=== PATIENT | female | born 1955 | race American Indian/Alaskan Native ===

== ENCOUNTER 2016-10-19 09:21 | Emergency (ER) | payer SELFPAY ==
[2016-10-19] MEDS ORDERED: TORADOL IM ONE (16:16)
--- NOTE | 2016-10-19 16:22 | Emergency Department Report ---
ED General Adult HPI - General Chief complaint: Pain General Stated complaint: BODY ACHES/KNEE PAIN Time Seen by Provider: 10/19/16 16:14 Source: patient Mode of arrival: Ambulatory Limitations: No Limitations - History of Present Illness Initial comments: 60-year-old female from the [facility] comes in for complaint of joint pain all over. Patient reports she has been hasn't taken her meds since August. She ran out of medication and her provider back in the [facility] when no longer refilled her meds. Patient reports she has a history of osteoarthritis and she is on methotrexate 2.5 mg every week prednisone 10 mg daily lisinopril 20 mg daily for hypertension and she was on Percocet 5/325 every 6 hours. Patient's provider was Dr. Mckenna Espinoza from the [facility]. She reports that the most pain is in her left knee she's has pain in her hands shoulders and back. He has tried [id number] Aleve and Advil with not much success. She does bring in copies of her prescription from the pharmacy. She is here on the [facility] and states she is taking care of her sick sister. - Related Data Previous Rx's Medication Instructions Recorded Last Taken Type Lisinopril [Zestril TAB] 10 mg PO QDAY #30 tablet 10/19/16 Unknown Rx Methotrexate(Dose Weekly Only) 2.5 mg PO QWEEK #4 tablet 10/19/16 Unknown Rx predniSONE [Deltasone] 10 mg PO QDAY #30 tab 10/19/16 Unknown Rx traMADol [Ultram 50 MG tab] 50 mg PO Q4HR PRN #30 tablet 10/19/16 Unknown Rx Allergies Allergy/AdvReac Type Severity Reaction Status Date / Time No Known Allergies Allergy Unverified 10/19/16 09:31 ED Review of Systems ROS: Stated complaint: BODY ACHES/KNEE PAIN Other details as noted in HPI Constitutional: denies: chills, fever Respiratory: no symptoms reported Musculoskeletal: back pain, arthralgia. denies: joint swelling Skin: denies: rash, lesions Neurological: as per HPI. denies: headache, numbness, paresthesias, abnormal gait ED Past Medical Hx - Past Medical History Previous Medical History?: Yes Hx Hypertension: Yes Hx Arthritis: (OSTESO ARTHRITIS) - Surgical History Past Surgical History?: Yes Additional Surgical History: THYROID SURGERY - Social History Smoking Status: Never Smoker - Medications Home Medications: Home Medications Medication Instructions Recorded Confirmed Last Taken Type Lisinopril [Zestril TAB] 10 mg PO QDAY #30 tablet 10/19/16 Unknown Rx Methotrexate(Dose Weekly Only) 2.5 mg PO QWEEK #4 tablet 10/19/16 Unknown Rx predniSONE [Deltasone] 10 mg PO QDAY #30 tab 10/19/16 Unknown Rx traMADol [Ultram 50 MG tab] 50 mg PO Q4HR PRN #30 tablet 10/19/16 Unknown Rx ED Physical Exam - General Limitations: No Limitations, Other (morbid obesity / patient's not able to get on exam table secondary to pain in weight. And was limited to the chair.) General appearance: alert - Head Head exam: Present: atraumatic, normocephalic - Eye Eye exam: Present: normal appearance - Expanded Upper Extremity Exam Left Shoulder Exam: Present: normal inspection, full ROM, crepidus. Absent: tenderness, swelling Right Shoulder Exam: Present: normal inspection, full ROM, crepidus. Absent: tenderness, swelling - Expanded Lower Extremity Exam Left Knee exam: Present: full ROM (decrease range of motion secondary to pain), tenderness, crepidus. Absent: swelling, abrasion, erythema Right Knee exam: Present: normal inspection, full ROM, crepidus. Absent: tenderness, swelling - Back Exam Back exam: Present: normal inspection. Absent: tenderness, CVA tenderness (R), CVA tenderness (L) - Neurological Exam Neurological exam: Present: alert, oriented X3 - Psychiatric Psychiatric exam: Present: normal affect, normal mood ED Course Vital Signs 10/19/16 09:35 Temperature 98 F Pulse Rate 94 H Respiratory 24 Rate Blood Pressure 155/90 O2 Sat by Pulse 99 Oximetry ED Medical Decision Making - Radiology Data Patient's been evaluated by this provider in fast track. Discussed with patient that we'll give her a shot of Toradol to help her pain. Refill her lisinopril for methotrexate her prednisone and we'll put her on tramadol for pain. Patient verbalized understanding we will also refer patient to an outpatient medicine. Critical care attestation.: If time is entered above; I have spent that time in minutes in the direct care of this critically ill patient, excluding procedure time. ED Disposition Clinical Impression: Osteoarthritis Qualifiers: Osteoarthritis location: multiple joints Osteoarthritis type: primary Qualified Code(s): M15.0 - Primary generalized (osteo)arthritis Disposition: DISCHARGED TO HOME OR SELFCARE Is pt being admited?: No Does the pt Need Aspirin: No Condition: Stable Instructions: Osteoarthritis (ED) Additional Instructions: Take medication as prescribed. Follow up with an outpatient provider for further evaluation and management of her chronic osteoarthritis. Prescriptions: predniSONE [Deltasone] 10 mg PO QDAY #30 tab Methotrexate(Dose Weekly Only) 2.5 mg PO QWEEK #4 tablet traMADol [Ultram 50 MG tab] 50 mg PO Q4HR PRN #30 tablet PRN Reason: Pain Lisinopril [Zestril TAB] 10 mg PO QDAY #30 tablet Referrals: PRIMARY MD ROSIE [Primary Care Provider] - 3-5 Days DAMON REDDING MD [Staff Physician] - 3-5 Days
[2016-10-19 16:45] VITALS: BP 162/74
== END 2016-10-19 16:36 | disposition home or self-care (01) ==
LOC: ED 09:21
DX: M15.0 Primary generalized (osteo)arthritis (principal); I10 Essential (primary) hypertension
CPT/HCPCS: 96372; 99282; J1885